=== PATIENT | female | born 1960 | race Caucasian/White ===

== ENCOUNTER → 2017-03-09 | Outpatient (CLI) | payer BC ==
[~2017-03-09] MED LIST: AMLO5TAB2 PO; CARV25TA PO; NABU1TAB37 PO; SOMA350T PO; VENL75TA PO
[2017-03-09 14:31] LABS: AUTOMATED NEUTROPHIL # 5.5 TH/MM3 (1.8-7.7); BASOPHIL % 0.5 % (0.0-2.0); EOSINOPHIL # 0.1 TH/MM3 (0-0.4); EOSINOPHIL % 1.4 % (0.0-4.0); HEMATOCRIT 41.7 % (35.0-46.0); HEMO FLAGS DIFF FINAL; LYMPH % 22.7 % (9.0-44.0); LYMPHOCYTE # 1.8 TH/MM3 (1.0-4.8); MEAN CELL VOLUME 82.8 FL (80.0-100.0); MEAN CORPUSCULAR HEMOGLOBIN 27.8 PG (27.0-34.0); MEAN CORPUSCULAR HGB CONC 33.5 % (32.0-36.0); MONO % 5.3 % (0.0-8.0); NEUT % 70.1 % (16.0-70.0); PLATELET COUNT 232 TH/MM3 (150-450); RED BLOOD COUNT 5.03 MIL/MM3 (4.00-5.30); RED CELL DISTRIBUTION WIDTH 13.7 % (11.6-17.2); WHITE BLOOD COUNT 7.9 TH/MM3 (4.0-11.0)
[2017-03-09 14:38] LABS: BACTERIA, URINE OCC /hpf; BLOOD, URINE MOD (NEG); COMMENT (UR) CULTURE INDICATED; CULTURE IF INDICATED CULTURE INDICATED; GLUCOSE,URINE NEG (NEG); KETONE, URINE NEG (NEG); MUCUS URINE MANY /lpf (OCC); NITRITE,URINE NEG (NEG); SQUAMOUS EPITHELIAL CELL URINE 1 /hpf (0-5); URINE COLOR YELLOW (YELLW/STRAW)
[2017-03-09 15:01] LABS: ALT (GPT) 20 U/L (10-53); ANION GAP 5 MEQ/L (5-15); AST (GOT) 15 U/L (15-37); BLOOD UREA NITROGEN 11 MG/DL (7-18); CHLORIDE 106 MEQ/L (98-107); GLOMERULAR FILTRATION RATE 100 ML/MIN (>89); GLUCOSE,FASTING 85 MG/DL (74-99); POTASSIUM 3.9 MEQ/L (3.5-5.1); SODIUM (NA) 143 MEQ/L (136-145)
[2017-03-09 15:03] LABS: ALKALINE PHOSPHATASE 108 U/L (45-117); TOTAL BILIRUBIN ADULT 0.4 MG/DL (0.2-1.0)
--- NOTE | 2017-03-11 14:01 | EKG ---
Date Performed: 03/09/2017 Time Performed: 14:18:00 PTAGE: 57 years EKG: Sinus rhythm NONSPECIFIC ST & T-WAVE ABNORMALITY BORDERLINE ECG NO PREVIOUS TRACING DOCTOR: Luis Vanessa Interpretating Date/Time 03/11/2017 14:01:16
== END ==
LOC: CPRE 13:53
PROVIDERS: ATTEND Obstetrics & Gynecology Gynecology
DX: Z01.812 Encounter for preprocedural laboratory examination (principal); Z01.810 Encounter for preprocedural cardiovascular examination; T83.71 Erosion of implanted mesh and other prosthetic materials to surrounding organ or tissue; R82.99 Other abnormal findings in urine
CPT/HCPCS: 36415; 80053; 81001; 85025; 87086; 93005

== ENCOUNTER → 2017-03-15 | Day surgery (SDC) | payer BC ==
--- NOTE | 2017-03-10 07:58 | MH ---
cc: MCKENNA HERNANDEZ DATE OF ADMISSION: 03/15/2017 REASON FOR ADMISSION Excision of eroded mesh and/or sling. HISTORY OF PRESENT ILLNESS Patient is a 56-year-old white female, 5, para 2, who had a hysterectomy in 2002 and then had a subsequent sling and mesh placed three years ago in [place] by Dr. Kwame Haider and Danyel Barnett. Review of the operative note shows it was a polypropylene mesh and a TVPO polypropylene sling. The patient noted soon after issues with pelvic pain, dyspareunia, vaginal discharge. She was evaluated in our office and found to have erosion of approximately 2 cm in the mid urethra. The patient and I discussed at length options for management and treatment and she wants to proceed with surgical excision. PAST MEDICAL HISTORY 1. Hypertension, 2. Hypercholesterolemia 3. Distant history of atrial fibrillation, 4. Chronic pelvic pain. 5. Polycystic ovarian syndrome, 6. Osteoarthritis. 7. 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 Soma 350 mg three times a day 2. Amlodipine 5 mg daily 3. Effexor 79 mg daily. 4. 25 mg b.i.d. ALLERGIES BETADINE - HIVES LATEX - tachycardia and severe systemic response PENICILLIN - history of anaphylaxis. OBSTETRICAL HISTORY Two vaginal deliveries. GYNECOLOGIC HISTORY As above. Hysterectomy for benign condition. Pelvic prolapse surgery for pelvic prolapse PAST SURGICAL HISTORY Cervical spine fusion 2006. FAMILY HISTORY Noncontributory SOCIAL HISTORY Very good social support. No alcohol, tobacco, caffeine. REVIEW OF SYSTEMS As above. No chest pain, orthopnea, PND. No nausea, vomiting chills. She has vaginal discharge and pain. No incontinence at this point. Remainder of 14-point review negative. PHYSICAL EXAMINATION VITAL SIGNS: She is afebrile. Vital signs stable, blood pressure 120/70, height 5 feet 9 inches, weight 226, BMI is 33. GENERAL: Patient is alert and oriented in no acute distress, no sign of cognitive function or depression. HEENT: Within normal limits. NECK: Supple. No JVD. CHEST: Clear. HEART: Regular rate and rhythm. ABDOMEN: Soft, nontender. No hepatosplenomegaly. No CVA tenderness. PELVIC: In the office we note pop Q score Aa is -2, Ap is -1, point C is -8, total vaginal length is 10. General hiatus is 4, perineal body is five. There is an erosion approximately 2 cm in mid urethra. Remainder of pelvic exam will be detailed under anesthesia. EXTREMITIES: Normal skin without rashes. NEUROLOGIC: Nonfocal. No DVT signs. ASSESSMENT Patient with mesh and/or sling erosion anterior vaginal wall causing vaginal discharge, dyspareunia, pelvic pain. The patient and I discussed at length options for management and treatment. She is aware of the risks, benefits and alternatives of planned procedure including damage to surrounding organs, bleeding, infection, damage to bladder or bowel and urethra. She is aware of the possibility of long-term catheterization, also aware of the possibility of new onset urinary incontinence. The patient is also aware of possibility that the pain may not be relieved and there may be multiple stage procedures required to remove as much mesh as possible. The patient has made informed choice to proceed. We will use DVT prophylaxis with sequential compression device. In light of her severe allergies to penicillin, we will use Cleocin and Flagyl. She has issue with Betadine and we can use alternative methods for vaginal prep. Anticipate outpatient procedure. MD MIKEY Toro/ /5:16 PM /7:53 AM
[~2017-03-15] VITALS: Ht 175.3 cm; Wt 102.4 kg
[~2017-03-15] MED LIST changes: +ACETAMINOPHEN 1000 MG/100 ML 100 ML IV ONE; +APREPITANT 40 MG CAP ONE; +CHLORHEXIDINE GLUCONATE 2 % 1 PACK (2 CLOTHS) TOPICAL PRN; +CLINDAMYCIN 600 MG/NS PREMIX 50 ML IV SCH; +DEXAMETHASONE SOD PHOS 4 MG/ML VIAL IV ONE; +DO NOT ADM ANY ANTICOAGULANT DRUGS PRN; +ESTROGENS CONJUGATED VAG CREA 15 APPL/30 GM TUBE ONE; +KETOROLAC TROMETHAMINE 30 MG/ML (IVP) VIAL IV PUSH ONE; +KETOROLAC TROMETHAMINE 60 MG/2 ML (IM) VIAL IM PRN; +LACTATED RINGER'S 1000 ML INJ 1,000 ML IV ONE; +LACTATED RINGER'S 1000 ML IV PRN; +LIDOCAINE 1%/EPINEPHrine 1:100,000 SOLN 20 ML VIAL ONE; +LIDOCAINE HCL 1% PF 5 ML SYRINGE OTHER ONE; +METOCLOPRAMIDE HCL 10 MG/2 ML VIAL ONE; +METOPROLOL TARTRATE 25 MG TAB PO PRN; +METRONIDAZOLE 500 MG/100 ML ISONTONIC SOLN IV SCH; +MORPHINE SULFATE 8 MG/ML INJ ONE; +ONDANSETRON HCL 4 MG/2 ML VIAL IV ONE; +ONDANSETRON HCL 4 MG/2 ML VIAL IV PUSH PRN; +PHENYLEPH/NS 1000 MCG/10 ML SYR IV ONE; +PROPOFOL 200 MG/20 ML AMP IV ONE; +PROPOFOL 500 MG/50 ML INJ 150 ML ONE; +SODIUM CHLORID 0.9% 500 ML IV PRN; +ePHEDrine/NS 25 MG/5 ML SYRINGE IV ONE; +traMADol HCL 50 MG TAB ONE; +traMADol HCL 50 MG TAB PO PRN
[2017-03-15 09:43] VITALS: TEMP 98.1
[2017-03-15 10:15] VITALS: BP 131/76; PULSE 76; RESP 18; O2SAT 95
--- NOTE | 2017-03-15 10:56 | MP ---
cc: MIGUEL HERNANDEZ MD, MD,STEFANO CRUZ MD,ROBERT DATE OF SURGERY 03/15/2017 PREOPERATIVE DIAGNOSES Erosion of implanted vaginal mesh through the anterior vaginal wall, code T83.711A, microhematuria, code R31.1. POSTOPERATIVE DIAGNOSIS Erosion of implanted vaginal mesh through the anterior vaginal wall, code T83.711A, with midline cystocele code N81.11. PROCEDURE Excision of vaginal mesh, CPT code 99804, anterior repair 16593, cystoscopy 09046 to be coupled with a diagnosis of microhematuria R31.1. SURGEON Miguel Hernandez MD ANESTHESIA Laryngeal mask DIRECTOR OF INFECTION PREVENTION [place] staff x2 FLUIDS 1000 cc crystalloid BLOOD LOSS 5 cc URINE OUTPUT 300 cc FINDINGS External genitalia poorly estrogenized. POP-Q score: Aa is -1, Ap is -1. Point C is -8. Total vaginal length is 8. Genital hiatus is 7. Perineal body is 2. In the midline underlying the trigone of bladder, there is a 2 x 3 cm area of exposed polypropylene mesh. With cystoscopy, this does not involve the bladder mucosa or the urethra. Following repair, Aa is -3. Remainder of pop Q score unchanged. Cystoscopy prior to the procedure shows a normal dome and base of bladder. Ureteral orifices patent x2. The urethra normal. Following repair, no change in exam. No etiology identified for the microhematuria. SPECIMENS Excised polypropylene mesh for gross inspection and identification only. DVT PROPHYLAXIS Sequential compression device ANTIBIOTIC PROPHYLAXIS Cleocin 600 mg IV, Flagyl 500 mg IV. TIME-OUT PROCEDURE Per protocol. SUMMARY OF INDICATIONS FOR THE PROCEDURE The patient has had a [employer] mesh kit placed several years ago in addition to a midurethral sling. Soon after the initial procedure, she had erosion of the anterior vaginal wall. After multiple opinions and discussions, she has opted for excision of the exposed mesh. PREOP LABORATORY STUDIES Showed microhematuria and the patient was having some bladder spasm type pain issues. OPERATIVE NOTE The patient taken to the operating room theater, identified and prepped and draped in a fashion appropriate for the planned procedure. She was in the dorsal spine position with careful attention paid to placement of legs in the stirrups to avoid undue stress to sensitive neurovascular structures. Above findings noted. Neurovascular integrity documented. Neurovascular integrity documented. Cystoscopy performed first, above findings noted. We used a 17-[place]e bridge and a 70 degrees scope. Once we were sure that the bladder and urethra were normal and there was no erosion through the bladder or urethra, we then moved to excising the anterior mesh. A Stewart catheter was placed. Methylene blue was instilled into the bladder. We infiltrated the area of erosion with epinephrine/lidocaine solution, excised and undermined the mesh, removed this from the bladder. There was no spill of methylene blue with dissection. There was no sign of residual mesh in the area of the operative field. Flaps were developed. Blood supply was good at the leading edges of the flap. We then closed this with interrupted sutures of 2-0 Vicryl and completed anterior repair in standard fashion. Repeat cystoscopy with the above findings. The patient does have some degree of rectocele, but with her history of chronic constipation and neuromuscular disorder, she had opted not to repair this at this time. The patient to recover room in stable condition. She meets criteria. She will likely be discharged from PACU. MD MIKEY Toro/JOSE ENRIQUE /9:45 AM /10:27 AM
== END | disposition home or self-care (01) ==
LOC: HSDC 05:59
PROVIDERS: ATTEND Obstetrics & Gynecology Gynecology
DX: T83.71 Erosion of implanted mesh and other prosthetic materials to surrounding organ or tissue (principal); N89.8 Other specified noninflammatory disorders of vagina; I10 Essential (primary) hypertension; M19.90 Unspecified osteoarthritis, unspecified site; Z90.710 Acquired absence of both cervix and uterus; Z88.0 Allergy status to penicillin
CPT/HCPCS: 00860; 57287; 88305; J0131; J1100; J1885; J2270; J2370; J2405; J2765; J3010; J7120; J8501